=== PATIENT | female | born 1970 | race Caucasian/White ===

== ENCOUNTER 2016-12-16 11:18 | Emergency (ER) | payer MEDICARE, OTHER ==
[~2016-12-16] VITALS: Ht 162.6 cm; Wt 86.2 kg
[2016-12-16] MEDS ORDERED: PRILOSEC OTC20 MG PO (12:05)
[2016-12-16] MEDS ORDERED: ZYRTEC10 MG PO (12:06)
[2016-12-16] MEDS ORDERED: LOSARTAN-HCTZ1 EAC2 PO (12:07)
[2016-12-16] MEDS ORDERED: METOPROLOL SUCC50 MG PO (12:27)
== END 2016-12-16 13:09 | disposition home or self-care (01) ==
LOC: ED 11:18
DX: T78.40XA Allergy, unspecified, initial encounter (principal); Z91.013 Allergy to seafood; Z88.8 Allergy status to other drugs, medicaments and biological substances; Z79.899 Other long term (current) drug therapy
CPT/HCPCS: 96372; 96374; 99283; J1200; J2060